=== PATIENT | male | born 1980 | race Two or more races ===

== ENCOUNTER 2017-10-30 13:01 | Emergency (ER) | payer SELFPAY ==
[2017-10-30 13:11] VITALS: BP 127/81
[2017-10-30] MEDS ORDERED: TDAP ADULT 0.5 ML INJ (BOOSTRIX) IM ONE (13:12)
[2017-10-30] MEDS ORDERED: diphenhydrAMINE 12.5 MG/5 ML UDCUP PO ONE (13:27)
[2017-10-30] MEDS ORDERED: predniSONE 20 MG TAB PO ONE (13:27)
--- NOTE | 2017-10-30 13:28 | EDPHY ---
H & P Time Seen by Provider: 10/30/17 13:07 HPI/ROS: 36-year-old male presents complaining of right arm redness and swelling where he was stung by an insect yesterday morning at 9:00 a.m.. He did not make any interventions after the sting. He has no prior history of allergy to insect stings. Review of systems As per HPI General no fever no chills no weakness HEENT no eye pain no eye discharge. No eye redness, no sore throat Respiratory no cough, no shortness of breath Cardiac no chest pain, no peripheral edema GI no abdominal pain, no diarrhea, no constipation, no nausea, no vomiting no flank pain, no hematuria, no dysuria Musculoskeletal no myalgias, no joint pain Heme no easy bruising, no easy bleeding Endo no polyuria, no polydipsia Skin positive rashes, no pruritus Neuro no syncope, no dizziness, no headaches Psych is no suicidal ideation, no homicidal ideation Past Medical/Surgical History: Seasonal allergies Social History: Denies alcohol or drug use Smoking Status: Never smoked Physical Exam: 36-year-old male Alert and oriented in no acute distress nontoxic appearance, afebrile Atraumatic normocephalic No intraoral swelling, no tongue edema no uvular edema Neck no JVD, no stridor Lungs clear to auscultation, no respiratory distress Heart regular rate and rhythm Extremities no cyanosis clubbing edema Except right upper arm Insect bite with circumferential erythema and edema in an area approximately 4 cm x 8 cm, blanches Full range of motion of elbow shoulder wrist digits No lymphangitic streaks Constitutional: Initial Vital Signs Temperature (C) 36.9 C 10/30/17 13:08 Heart Rate 88 10/30/17 13:08 Respiratory Rate 16 10/30/17 13:08 Blood Pressure 127/81 H 10/30/17 13:08 O2 Sat (%) 94 10/30/17 13:08 O2 Delivery Mode Room Air Allergies/Adverse Reactions: No Known Allergies Allergy (Verified 10/30/17 13:11) Home Medications: Medication Instructions Recorded Flonase Nasal Whittaker 10/30/17 ZYRTEC 10/30/17 predniSONE 40 mg PO DAILY 5 Days tab 10/30/17 Medical Decision Making ED Course/Re-evaluation: Patient seen and evaluated for insect sting to right upper arm. Impression Insect sting with local allergic reaction Plan Prednisone 60 mg p.o. now followed by a Prednisone burst Diphenhydramine Hydrocortisone Ointment Differential Diagnosis: Differential diagnosis considered but not limited to: Anaphylactoid type allergic reaction to insect sting, insect sting, ecchymosis, cellulitis - Data Points Medications Given: Discontinued Medications Diphenhydramine HCl (Benadryl Oral Liquid) 50 mg PO EDNOW ONE Stop: 10/30/17 13:28 Last Admin: 10/30/17 13:39 Dose: Not Given Diphenhydramine HCl (Benadryl) 50 mg PO EDNOW ONE Stop: 10/30/17 13:39 Last Admin: 10/30/17 13:39 Dose: 50 mg Diphtheria/Tetanus/Acell Pertussis (Boostrix) 0.5 ml IM .ONCE ONE Stop: 10/30/17 13:13 Last Admin: 10/30/17 13:40 Dose: 0.5 ml Prednisone (Prednisone) 60 mg PO EDNOW ONE Stop: 10/30/17 13:28 Last Admin: 10/30/17 13:39 Dose: 60 mg Departure - Departure Disposition: Home, Routine, Self-Care Clinical Impression: Insect sting allergy, current reaction Condition: Good Instructions: Insect Bite or Sting (ED) Additional Instructions: Apply ice to sting Apply hydrocortisone cream to area twice a day, can buy over the counter. Diphenhydramine(Benadryl) 50 mg every 8 hours for itching or redness, can buy over the counter. Prednisone 40 mg once a day for 5 days( this will be a prescription) Referrals: [facility]] - As per Instructions Prescriptions: predniSONE 40 mg PO DAILY 5 Days tab
[2017-10-30] MEDS ORDERED: diphenhydrAMINE 25 MG CAP PO ONE ×2 (13:36→13:38)
== END 2017-10-30 13:46 | disposition home or self-care (01) ==
LOC: CED 13:01
DX: T78.49XA Other allergy, initial encounter (principal); Z23 Encounter for immunization
CPT/HCPCS: J7512